=== PATIENT | female | born 1935 | race Caucasian/White ===

== ENCOUNTER 2017-11-29 13:50 | Inpatient (IN) | payer MEDICARE, OTHER ==
[~2017-11-29] VITALS: Ht 152.4 cm; Wt 102.7 kg
[~2017-11-29 13:50] MED LIST: ALBU18HF2 IH; AMOX500C2 PO; ATOR40TA71 PO; CHOL100046 PO; DOCU100C63 PO; FLUT1DIS4 INH; ISOS60TA PO; LACT1CAP26 PO; LACTC PO; LEVO50TA8 PO; MAGN500C16 PO; METO-136 PO; NYSPWD TP; OMEP-84 PO; ONDA4TAB12 PO; POLY119P2 PO; POTA2TAB6 PO; SENN17.26 PO; SUCR1ORA2 PO; TICA90TA PO
[2017-11-29 14:30] LABS: BASOPHILS % (AUTO) 0 % (0-1); EOSINOPHILS % (AUTO) 0 % (0-6); HEMATOCRIT 43.2 % (35.0-45.0); HEMOGLOBIN 15.1 g/dl (12.0-16.0); LYMPHOCYTES # (AUTO) 0.3 X10'3 (1.1-4.8); LYMPHOCYTES % (AUTO) 2.5 % (21-51); MEAN CORPUSCULAR HEMOGLOBIN 31.7 PG (27.0-31.0); MEAN CORPUSCULAR HGB CONC 34.9 % (33.0-36.5); MEAN CORPUSCULAR VOLUME 90.9 FL (78-98); MONOCYTES # (AUTO) 0.8 X10'3 (0-0.9); MONOCYTES % (AUTO) 5.9 % (2-12); NEUTROPHILS # (AUTO) 12.4 X10'3 (1.8-7.7); NEUTROPHILS % (AUTO) 91.6 % (42-75); PLATELET COUNT 184 X10'3 (140-440); RED BLOOD COUNT 4.75 X10'6 (4.20-5.60); RED CELL DISTRIBUTION WIDTH 13.3 % (11.5-14.5); WHITE BLOOD COUNT 13.5 X10'3 (4.5-11.0)
[2017-11-29 14:38] LABS: PARTIAL THROMBOPLASTIN TIME 23 SECONDS (22-32); PROTHROMBIN TIME 10.4 SECONDS (9.0-12.0)
[2017-11-29] MEDS ORDERED: normal saline 1000ML IV soln IVB ONE (14:40)
[2017-11-29 14:43] LABS: ALANINE AMINOTRANSFERASE 717 U/L (12-78); ALBUMIN 3.3 G/DL (3.4-5.0); ALKALINE PHOSPHATASE 190 IU/L (46-116); ANION GAP 13 (8-16); ASPARTATE AMINO TRANSFERASE 705 U/L (10-37); BILIRUBIN,TOTAL 4.7 MG/DL (0.1-1.0); BLOOD UREA NITROGEN 22 MG/DL (7-18); BUN/CREATININE RATIO 21.6 (6.6-38.0); CALCIUM 8.8 MG/DL (8.5-10.1); CHLORIDE 104 MMOL/L (99-107); CREATININE 1.02 MG/DL (0.40-0.90); GLUCOSE 141 MG/DL (70-104); POTASSIUM 4.1 MMOL/L (3.5-5.1); SODIUM 144 MMOL/L (135-145); eGFR 52 ML/MIN
[2017-11-29 14:44] LABS: TOTAL PROTEIN 6.5 G/DL (6.4-8.2)
[2017-11-29] MEDS ORDERED: ondansetron 4mg rapidly disintigrating tab PO ONE (15:00)
[2017-11-29] MEDS ORDERED: ondansetron/PF 4mg/2ml inj IV ONE (15:25)
[2017-11-29] MEDS ORDERED: morphine 2 MG/ML inj. syringe IV PRN (15:55)
[2017-11-29] MEDS: normal saline 1000ml 1,000 ML IV SCH (15:58)
[2017-11-29] MEDS ORDERED: mag hydrox/Alum hydrox/simeth 30ml oral suspension PO PRN (16:00)
[2017-11-29] MEDS ORDERED: magnesium hydroxide 30ml (MOM) UD suspension PO PRN (16:00)
[2017-11-29] MEDS ORDERED: acetaminophen 325mg tablet PO PRN (16:00)
[2017-11-29] MEDS ORDERED: ondansetron/PF 4mg/2ml inj IV PRN (16:00)
[2017-11-29] MEDS ORDERED: hydrALAZINE 20mg/ml inj. IV PRN (16:00)
[2017-11-29] MEDS ORDERED: ipratropium/albuterol 3ml nebule NEB PRN (16:00)
[2017-11-29] MEDS ORDERED: morphine 4 MG/ML inj SYRINge IV PRN (16:03)
[2017-11-29 17:21] LABS: BILIRUBIN,DIRECT 3.6 MG/DL (0-0.3)
[2017-11-29 19:09] LABS: CLARITY,URINE SLIGHTLY CLOUDY (Clear); COLOR,URINE AMBER (Yellow); GLUCOSE, URINE NEGATIVE (Neg); KETONES,URINE TRACE mg/dl (Neg); LEUKOCYTE ESTERASE ,URINE NEGATIVE (Neg); NITRITES, URINE POSITIVE (Neg); OCCULT BLOOD,URINE NEGATIVE (Neg); PROTEIN,URINE 30 mg/dl (Neg)
[2017-11-29 19:26] LABS: UA COLLECTION TYPE NON-SPECIFIED
[2017-11-29 19:28] LABS: BACTERIA,URINE 2+ /HPF (Neg); RBC,URINE NONE SEEN /HPF (0-2); SQUAMOUS EPITHELIAL CELL,UR FEW /LPF (FEW); WBC,URINE 0-4 /HPF (0-4)
[2017-11-30] VITALS: BP 129/69
[2017-11-30] MEDS: normal saline 1000ml 1,000 ML IV SCH ×3 (01:58→17:05)
[2017-11-30 02:40] LABS: BASOPHILS % (AUTO) 0.2 % (0-1); EOSINOPHILS # (AUTO) 0.1 X10'3 (0-0.9); EOSINOPHILS % (AUTO) 0.9 % (0-6); HEMATOCRIT 39.6 % (35.0-45.0); HEMOGLOBIN 13.7 g/dl (12.0-16.0); LYMPHOCYTES # (AUTO) 0.6 X10'3 (1.1-4.8); LYMPHOCYTES % (AUTO) 6.1 % (21-51); MEAN CORPUSCULAR HEMOGLOBIN 31.6 PG (27.0-31.0); MEAN CORPUSCULAR HGB CONC 34.6 % (33.0-36.5); MEAN CORPUSCULAR VOLUME 91.6 FL (78-98); MEAN PLATELET VOLUME 8.2 FL (7.4-10.4); MONOCYTES # (AUTO) 0.6 X10'3 (0-0.9); MONOCYTES % (AUTO) 6.1 % (2-12); NEUTROPHILS # (AUTO) 8.9 X10'3 (1.8-7.7); NEUTROPHILS % (AUTO) 86.7 % (42-75); PLATELET COUNT 152 X10'3 (140-440); RED BLOOD COUNT 4.33 X10'6 (4.20-5.60); RED CELL DISTRIBUTION WIDTH 13.9 % (11.5-14.5); WHITE BLOOD COUNT 10.3 X10'3 (4.5-11.0)
[2017-11-30 02:58] LABS: ALANINE AMINOTRANSFERASE 534 U/L (12-78); ALBUMIN 2.7 G/DL (3.4-5.0); ALBUMIN/GLOBULIN RATIO 0.9 (1.1-1.5); ALKALINE PHOSPHATASE 154 IU/L (46-116); ANION GAP 8 (8-16); ASPARTATE AMINO TRANSFERASE 371 U/L (10-37); BILIRUBIN,TOTAL 3.6 MG/DL (0.1-1.0); BLOOD UREA NITROGEN 19 MG/DL (7-18); BUN/CREATININE RATIO 31.7 (6.6-38.0); CALCIUM 7.9 MG/DL (8.5-10.1); CHLORIDE 109 MMOL/L (99-107); GLUCOSE 121 MG/DL (70-104); POTASSIUM 3.4 MMOL/L (3.5-5.1); SODIUM 144 MMOL/L (135-145); TOTAL PROTEIN 5.6 G/DL (6.4-8.2); eGFR > 90 ML/MIN
[2017-11-30] MEDS ORDERED: magnesium 4gm in 100ml NS 100 ML IV PRN (03:40)
[2017-11-30] MEDS ORDERED: potassium Cl 20 mEq SR tablet PO PRN (03:40)
[2017-11-30] MEDS ORDERED: magnesium Cl slow-release 64mg tablet PO PRN (03:40)
[2017-11-30] MEDS ORDERED: magnesium 2GM in 50ml NS 50 ML IV PRN (03:40)
[2017-11-30] MEDS ORDERED: potassium Cl 40MEQ/NS 500ml 500 ML IV PRN ×2 (03:40)
[2017-11-30 07:00] VITALS: BP 164/98
[2017-11-30] MEDS: pantoprazole 40 MG vial IV SCH (09:01)
[2017-11-30 11:00] VITALS: BP 172/73
[2017-11-30 20:00] VITALS: BP 141/93
[2017-12-01] VITALS: BP 167/83
[2017-12-01] MEDS: normal saline 1000ml 1,000 ML IV SCH ×3 (02:19→17:40)
[2017-12-01 06:18] LABS: BASOPHILS % (AUTO) 0.2 % (0-1); EOSINOPHILS # (AUTO) 0.1 X10'3 (0-0.9); EOSINOPHILS % (AUTO) 2.2 % (0-6); HEMATOCRIT 37.9 % (35.0-45.0); HEMOGLOBIN 13.1 g/dl (12.0-16.0); LYMPHOCYTES # (AUTO) 0.5 X10'3 (1.1-4.8); LYMPHOCYTES % (AUTO) 9.4 % (21-51); MEAN CORPUSCULAR HEMOGLOBIN 31.7 PG (27.0-31.0); MEAN CORPUSCULAR HGB CONC 34.4 % (33.0-36.5); MEAN CORPUSCULAR VOLUME 92.1 FL (78-98); MEAN PLATELET VOLUME 8.5 FL (7.4-10.4); MONOCYTES # (AUTO) 0.4 X10'3 (0-0.9); MONOCYTES % (AUTO) 7.6 % (2-12); NEUTROPHILS # (AUTO) 4.6 X10'3 (1.8-7.7); NEUTROPHILS % (AUTO) 80.6 % (42-75); PLATELET COUNT 139 X10'3 (140-440); RED BLOOD COUNT 4.12 X10'6 (4.20-5.60); RED CELL DISTRIBUTION WIDTH 13.6 % (11.5-14.5); WHITE BLOOD COUNT 5.7 X10'3 (4.5-11.0)
[2017-12-01 06:34] LABS: ALANINE AMINOTRANSFERASE 307 U/L (12-78); ALBUMIN 2.5 G/DL (3.4-5.0); ALBUMIN/GLOBULIN RATIO 0.9 (1.1-1.5); ALKALINE PHOSPHATASE 125 IU/L (46-116); ANION GAP 8 (8-16); ASPARTATE AMINO TRANSFERASE 91 U/L (10-37); BILIRUBIN,TOTAL 1.4 MG/DL (0.1-1.0); BLOOD UREA NITROGEN 18 MG/DL (7-18); BUN/CREATININE RATIO 28.6 (6.6-38.0); CHLORIDE 111 MMOL/L (99-107); CREATININE 0.63 MG/DL (0.40-0.90); GLUCOSE 82 MG/DL (70-104); MAGNESIUM 1.8 MG/DL (1.5-2.4); POTASSIUM 3.5 MMOL/L (3.5-5.1); SODIUM 147 MMOL/L (135-145); TOTAL CARBON DIOXIDE 27.9 MMOL/L (24-32); TOTAL PROTEIN 5.4 G/DL (6.4-8.2); eGFR 90 ML/MIN
[2017-12-01 07:00] VITALS: BP 100/71
[2017-12-01] MEDS: pantoprazole 40 MG vial IV SCH (07:54)
[2017-12-01 12:19] VITALS: BP 152/77
[2017-12-01 13:22] LABS: HBSAG SCREEN Negative (Negative); HEP A AB, IGM Negative (Negative); HEP B CORE AB, IGM Negative (Negative); HEPATITIS C ANTIBODY <0.1 s/co ratio (0.0-0.9)
[2017-12-01] MEDS: cefTRIAXone 1g/NS 100ml IVPB 100 ML IV SCH (17:39)
[2017-12-01 19:30] VITALS: BP 164/97
[2017-12-01] MEDS: isosorbide mononitrate 30mg tab.SR.24H PO SCH (21:29)
[2017-12-01] MEDS: ticagrelor 90mg tablet PO SCH (21:29)
[2017-12-02] VITALS: BP 149/85
[2017-12-02] MEDS: normal saline 1000ml 1,000 ML IV SCH (03:55)
[2017-12-02 06:04] LABS: BASOPHILS % (AUTO) 0.3 % (0-1); EOSINOPHILS # (AUTO) 0.2 X10'3 (0-0.9); EOSINOPHILS % (AUTO) 3.6 % (0-6); HEMATOCRIT 36.5 % (35.0-45.0); HEMOGLOBIN 12.3 g/dl (12.0-16.0); LYMPHOCYTES # (AUTO) 0.7 X10'3 (1.1-4.8); LYMPHOCYTES % (AUTO) 16.2 % (21-51); MEAN CORPUSCULAR HEMOGLOBIN 31.3 PG (27.0-31.0); MEAN CORPUSCULAR HGB CONC 33.7 % (33.0-36.5); MEAN CORPUSCULAR VOLUME 92.8 FL (78-98); MEAN PLATELET VOLUME 8.1 FL (7.4-10.4); MONOCYTES # (AUTO) 0.5 X10'3 (0-0.9); MONOCYTES % (AUTO) 11.4 % (2-12); NEUTROPHILS # (AUTO) 2.9 X10'3 (1.8-7.7); NEUTROPHILS % (AUTO) 68.5 % (42-75); PLATELET COUNT 151 X10'3 (140-440); RED BLOOD COUNT 3.93 X10'6 (4.20-5.60); RED CELL DISTRIBUTION WIDTH 13.6 % (11.5-14.5); WHITE BLOOD COUNT 4.2 X10'3 (4.5-11.0)
[2017-12-02 06:24] LABS: ALANINE AMINOTRANSFERASE 185 U/L (12-78); ALBUMIN 2.2 G/DL (3.4-5.0); ALBUMIN/GLOBULIN RATIO 0.8 (1.1-1.5); ALKALINE PHOSPHATASE 102 IU/L (46-116); ANION GAP 9 (8-16); ASPARTATE AMINO TRANSFERASE 35 U/L (10-37); BLOOD UREA NITROGEN 12 MG/DL (7-18); BUN/CREATININE RATIO 22.2 (6.6-38.0); CHLORIDE 110 MMOL/L (99-107); CREATININE 0.54 MG/DL (0.40-0.90); GLUCOSE 80 MG/DL (70-104); LIPASE 439 U/L (73-393); MAGNESIUM 1.7 MG/DL (1.5-2.4); POTASSIUM 3.3 MMOL/L (3.5-5.1); SODIUM 145 MMOL/L (135-145); TOTAL CARBON DIOXIDE 26.5 MMOL/L (24-32); TOTAL PROTEIN 5.1 G/DL (6.4-8.2); eGFR > 90 ML/MIN
[2017-12-02 07:00] VITALS: BP 127/66
[2017-12-02] MEDS ORDERED: levoTHYROXINE 25mcg tablet PO SCH (07:00)
[2017-12-02] MEDS: atorvastatin 20mg tablet PO SCH (07:36)
[2017-12-02] MEDS: isosorbide mononitrate 30mg tab.SR.24H PO SCH ×2 (07:36→19:30)
[2017-12-02] MEDS: metoprolol tartrate 50mg tablet PO SCH (07:37)
[2017-12-02] MEDS: pantoprazole 40mg Tablet.DR PO SCH (07:37)
[2017-12-02] MEDS: cefTRIAXone 1g/NS 100ml IVPB 100 ML IV SCH (07:38)
[2017-12-02] MEDS: ticagrelor 90mg tablet PO SCH ×2 (07:43→19:30)
[2017-12-02] MEDS: potassium Cl 20 mEq SR tablet PO PRN ×3 (09:06→17:18)
[2017-12-02 11:30] VITALS: BP 123/60
[2017-12-02 20:00] VITALS: BP 156/81
[2017-12-03] VITALS: BP 158/88
[2017-12-03] MEDS: normal saline 1000ml 1,000 ML IV SCH (01:24)
[2017-12-03 06:26] LABS: BASOPHILS % (AUTO) 0.2 % (0-1); EOSINOPHILS # (AUTO) 0.2 X10'3 (0-0.9); EOSINOPHILS % (AUTO) 3.5 % (0-6); HEMATOCRIT 37.8 % (35.0-45.0); LYMPHOCYTES # (AUTO) 1.1 X10'3 (1.1-4.8); LYMPHOCYTES % (AUTO) 22.7 % (21-51); MEAN CORPUSCULAR HEMOGLOBIN 31.5 PG (27.0-31.0); MEAN CORPUSCULAR HGB CONC 34.4 % (33.0-36.5); MEAN CORPUSCULAR VOLUME 91.6 FL (78-98); MEAN PLATELET VOLUME 8.4 FL (7.4-10.4); MONOCYTES # (AUTO) 0.7 X10'3 (0-0.9); MONOCYTES % (AUTO) 15.5 % (2-12); NEUTROPHILS # (AUTO) 2.8 X10'3 (1.8-7.7); NEUTROPHILS % (AUTO) 58.1 % (42-75); PLATELET COUNT 174 X10'3 (140-440); RED BLOOD COUNT 4.13 X10'6 (4.20-5.60); WHITE BLOOD COUNT 4.8 X10'3 (4.5-11.0)
[2017-12-03 06:35] LABS: ALANINE AMINOTRANSFERASE 131 U/L (12-78); ALBUMIN 2.5 G/DL (3.4-5.0); ALBUMIN/GLOBULIN RATIO 0.9 (1.1-1.5); ALKALINE PHOSPHATASE 98 IU/L (46-116); ANION GAP 10 (8-16); ASPARTATE AMINO TRANSFERASE 22 U/L (10-37); BILIRUBIN,TOTAL 1.1 MG/DL (0.1-1.0); BLOOD UREA NITROGEN 5 MG/DL (7-18); BUN/CREATININE RATIO 8.9 (6.6-38.0); CALCIUM 8.3 MG/DL (8.5-10.1); CHLORIDE 110 MMOL/L (99-107); CREATININE 0.56 MG/DL (0.40-0.90); GLUCOSE 112 MG/DL (70-104); MAGNESIUM 1.5 MG/DL (1.5-2.4); POTASSIUM 3.6 MMOL/L (3.5-5.1); SODIUM 146 MMOL/L (135-145); TOTAL CARBON DIOXIDE 25.6 MMOL/L (24-32); TOTAL PROTEIN 5.4 G/DL (6.4-8.2); eGFR > 90 ML/MIN
[2017-12-03 07:00] VITALS: BP 172/86
[2017-12-03] MEDS: metoprolol tartrate 50mg tablet PO SCH (07:10)
[2017-12-03] MEDS: atorvastatin 20mg tablet PO SCH (07:10)
[2017-12-03] MEDS: ticagrelor 90mg tablet PO SCH (07:10)
[2017-12-03] MEDS: pantoprazole 40mg Tablet.DR PO SCH (07:10)
[2017-12-03] MEDS: isosorbide mononitrate 30mg tab.SR.24H PO SCH (07:10)
[2017-12-03] MEDS: cefTRIAXone 1g/NS 100ml IVPB 100 ML IV SCH (07:11)
[2017-12-03 11:00] VITALS: BP 156/92
== END 2017-12-03 12:08 | disposition home or self-care (01) | DRG 438 ==
LOC: ER 13:50 → ED HOLD 15:58 → MED 3N 21:48
PROVIDERS: ADMIT Family Medicine; ATTEND Family Medicine
DX: K85.90 Acute pancreatitis without necrosis or infection, unspecified (principal); R65.11 Systemic inflammatory response syndrome (SIRS) of non-infectious origin with acute organ dysfunction; K81.0 Acute cholecystitis; N17.9 Acute kidney failure, unspecified; Z68.41 Body mass index [BMI] 40.0-44.9, adult; N39.0 Urinary tract infection, site not specified; E66.01 Morbid (severe) obesity due to excess calories; I25.10 Atherosclerotic heart disease of native coronary artery without angina pectoris; K21.9 Gastro-esophageal reflux disease without esophagitis; F32.9 Major depressive disorder, single episode, unspecified; I10 Essential (primary) hypertension; J44.9 Chronic obstructive pulmonary disease, unspecified; F41.1 Generalized anxiety disorder; E78.5 Hyperlipidemia, unspecified; G89.29 Other chronic pain; Z53.20 Procedure and treatment not carried out because of patient's decision for unspecified reasons; F40.240 Claustrophobia; R55 Syncope and collapse; I25.2 Old myocardial infarction; Z95.1 Presence of aortocoronary bypass graft; Z90.710 Acquired absence of both cervix and uterus; Z90.49 Acquired absence of other specified parts of digestive tract; Z88.8 Allergy status to other drugs, medicaments and biological substances; Z79.899 Other long term (current) drug therapy; Z87.11 Personal history of peptic ulcer disease
CPT/HCPCS: 36415; 71045; 74176; 76700; 80053; 80074; 81001; 82248; 83690; 83735; 84439; 84443; 84480; 84484; 85025; 85610; 85730; 87070; 87077; 87088; 87186; 93005; 94640; 94760; 96361; 96374; 97110; 97116; 97161; 99285; A6258; C9113; J0696; J2270; J2405; J3480; J7030

== ENCOUNTER 2019-09-09 13:13 | Emergency (ER) | payer MEDICARE, OTHER ==
[~2019-09-09] VITALS: Ht 152.4 cm; Wt 102.7 kg
[~2019-09-09 13:13] MED LIST changes: +ACET-3071 PO; -AMOX500C2 PO; -CHOL100046 PO; +CHOL50004 PO; -LACT1CAP26 PO; -LACTC PO; -LEVO50TA8 PO; -NYSPWD TP; -OMEP-84 PO; -ONDA4TAB12 PO; -POLY119P2 PO; -POTA2TAB6 PO; +RANO500T3 PO; -SENN17.26 PO; -SUCR1ORA2 PO; -TICA90TA PO
[2019-09-09 15:29] LABS: BASOPHILS # (AUTO) 0.1 X10'3 (0-0.2); EOSINOPHILS # (AUTO) 0.2 X10'3 (0-0.9); EOSINOPHILS % (AUTO) 4.4 % (0-6); HEMOGLOBIN 13.3 g/dl (12.0-16.0); LYMPHOCYTES # (AUTO) 1.1 X10'3 (1.1-4.8); LYMPHOCYTES % (AUTO) 20.4 % (21-51); MEAN CORPUSCULAR HEMOGLOBIN 31.3 PG (27.0-31.0); MEAN CORPUSCULAR HGB CONC 33.4 g/dL (33.0-36.5); MEAN CORPUSCULAR VOLUME 93.7 FL (78-98); MEAN PLATELET VOLUME 8.1 FL (7.4-10.4); MONOCYTES # (AUTO) 0.8 X10'3 (0-0.9); MONOCYTES % (AUTO) 13.7 % (2-12); NEUTROPHILS # (AUTO) 3.3 X10'3 (1.8-7.7); NEUTROPHILS % (AUTO) 60.5 % (42-75); PLATELET COUNT 225 X10'3 (140-440); RED BLOOD COUNT 4.27 X10'6 (4.20-5.60); RED CELL DISTRIBUTION WIDTH 14.2 % (11.5-14.5); WHITE BLOOD COUNT 5.5 X10'3 (4.5-11.0)
[2019-09-09 15:32] LABS: PARTIAL THROMBOPLASTIN TIME 27 SECONDS (22-32)
[2019-09-09 15:43] LABS: ALANINE AMINOTRANSFERASE 18 U/L (12-78); ALBUMIN 3.4 G/DL (3.4-5.0); ALBUMIN/GLOBULIN RATIO 1.2 (1.1-1.5); ALKALINE PHOSPHATASE 67 IU/L (46-116); ANION GAP 5 (8-16); ASPARTATE AMINO TRANSFERASE 16 U/L (10-37); BILIRUBIN,TOTAL 0.7 MG/DL (0.1-1.0); BLOOD UREA NITROGEN 19 MG/DL (7-18); BUN/CREATININE RATIO 28.8 (6.6-38.0); CALCIUM 8.9 MG/DL (8.5-10.1); CHLORIDE 107 MMOL/L (99-107); CREATININE 0.66 MG/DL (0.40-0.90); GLUCOSE 90 MG/DL (70-104); POTASSIUM 4.5 MMOL/L (3.5-5.1); SODIUM 142 MMOL/L (135-145); TOTAL CARBON DIOXIDE 30.2 MMOL/L (24-32); TOTAL PROTEIN 6.3 G/DL (6.4-8.2); eGFR 85 ML/MIN
[2019-09-09 15:49] LABS: MAGNESIUM 1.9 MG/DL (1.5-2.4)
[2019-09-09 15:57] LABS: CLARITY,URINE SLIGHTLY CLOUDY (Clear); COLOR,URINE YELLOW (Yellow); GLUCOSE, URINE NEGATIVE (Neg); KETONES,URINE NEGATIVE (Neg); LEUKOCYTE ESTERASE ,URINE TRACE (Neg); NITRITES, URINE NEGATIVE (Neg); OCCULT BLOOD,URINE NEGATIVE (Neg); PH,URINE 6.5 (4.8-8.0); PROTEIN,URINE NEGATIVE (Neg); UROBILINOGEN,URINE 0.2 E.U/dL (0.2-1.0)
[2019-09-09 16:00] LABS: UA COLLECTION TYPE CLN CATCH MIDSTREAM
[2019-09-09 16:08] LABS: BACTERIA,URINE 1+ /HPF (Neg); MUCUS STRANDS FEW /LPF (Neg); RBC,URINE NONE SEEN /HPF (0-2); SQUAMOUS EPITHELIAL CELL,UR MANY /LPF (FEW); WBC,URINE 0-4 /HPF (0-4)
[2019-09-09] MEDS ORDERED: furosemide 10 MG/1 ML 10ml inj IV ONE (16:25)
[2019-09-09] MEDS ORDERED: CEPH500C5 PO (17:07)
[2019-09-09] MEDS ORDERED: SULF1TAB49 PO (17:07)
[2019-09-09 17:24] VITALS: BP 160/89
== END 2019-09-09 17:25 | disposition home or self-care (01) ==
LOC: ER 13:13
DX: L03.116 Cellulitis of left lower limb (principal); L03.115 Cellulitis of right lower limb; N39.0 Urinary tract infection, site not specified; I25.10 Atherosclerotic heart disease of native coronary artery without angina pectoris; I50.9 Heart failure, unspecified; I11.0 Hypertensive heart disease with heart failure; I25.2 Old myocardial infarction; J44.9 Chronic obstructive pulmonary disease, unspecified; K21.9 Gastro-esophageal reflux disease without esophagitis; G89.29 Other chronic pain; F32.9 Major depressive disorder, single episode, unspecified; Z98.61 Coronary angioplasty status; Z90.49 Acquired absence of other specified parts of digestive tract; Z95.1 Presence of aortocoronary bypass graft; Z90.710 Acquired absence of both cervix and uterus; Z98.890 Other specified postprocedural states; Z88.8 Allergy status to other drugs, medicaments and biological substances; Z79.2 Long term (current) use of antibiotics; Z79.899 Other long term (current) drug therapy
CPT/HCPCS: 36415; 71045; 73590; 80053; 81001; 83605; 83735; 83880; 84145; 85025; 85610; 85730; 87040; 93970; 96374; 99284; J1940